=== PATIENT | male | born 1965 | race Caucasian/White ===

== ENCOUNTER 2022-01-20 00:13 | Day surgery (SDC) | payer OTHER, SELFPAY ==
[2021-12-23 13:19] VITALS: BMI 41.2
--- NOTE | 2022-01-11 13:42 | PC.NURSE ---
Completed patients pre-surgery phone call for rescheduled procedure. Patient states no changes in health history at this time.
[2022-01-20 10:35] VITALS: BP 147/98; PULSE 77; RESP 18; TEMP 36.3; O2SAT 94
[2022-01-20] MEDS: LACTATED RINGERS 1,000 ML 150 ML IV CONT (10:44)
--- NOTE | 2022-01-20 11:10 | WPDGICN ---
Assessment and Plan Assessment and plan (1) GERD (gastroesophageal reflux disease): Code(s): K21.9 - Gastro-esophageal reflux disease without esophagitis Status: Acute Assessment and Plan: Patient has chronic GE reflux. Appears controlled with omeprazole 40mg p.o. daily. Patient states if he stops this medicine symptoms promptly recur. Plan is for EGD because of the chronicity of symptoms to exclude underlying Barretts esophagus. Anti-reflux measures are discussed and encouraged. Continuing PPI therapy appears appropriate further recommendations may be given after EGD. (2) Encounter for screening colonoscopy: Code(s): Z12.11 - Encounter for screening for malignant neoplasm of colon Status: Acute Assessment and Plan: Colonoscopy recommended at this time he has never has screening exam. He appears to be at average risk for colon polyps. Further recommendations will be given after endoscopy. GI Consult Note Consult date/time: 01/20/22 11:10 HPI: Eligio Paige is a 56 year old male Presents for GI endoscopy. Patient reports that his current weight appetite bowel movements are normal. He denies any blood in his stools. He presents for screening colonoscopy. Family history noncontributory. He has never had prior colonoscopy in this is requested. Additionally patient has a lifelong history of acid reflux regurgitation heartburn. Patient has had no bleeding. He denies any dysphagia. Family history is noncontributory. He was placed on proton pump inhibitor therapy with omeprazole 40mg p.o. daily and this is help control symptoms. He has taken this medicine for perhaps 20 years. He has never had prior EGD. An EGD is requested because of chronic ge reflux. Review of Systems Review of Systems: All systems reviewed & are unremarkable except as noted in HPI and below PMFSH Social History Social History Smoking status: Never smoker Alcohol intake: current Alcohol use details: occasionally Substance use: never Substance use type: does not use Living arrangements: with family Spiritual care concerns: No Meds Home Medications and Allergies Home Medications Medication Instructions Recorded Confirmed Type escitalopram oxalate [Lexapro] 20 mg PO DAILY 12/23/21 12/23/21 History gabapentin 300 mg PO HS 12/23/21 12/23/21 History omeprazole 40 mg PO DAILY 12/23/21 12/23/21 History Allergies Allergy/AdvReac Type Severity Reaction Status Date / Time No Known Allergies Allergy Verified 01/11/22 13:35 Vital Signs Vital Signs - 24 hr 01/20/22 10:35 Temperature 97.4 F L Pulse Rate 77 Respiratory Rate 18 Blood Pressure 147/98 H Pulse Oximetry 94 Exam Narrative: Physical exam reveals patient to be alert. Vital signs stable. HEENT exam is unremarkable. Patient is anicteric. Lungs are clear to auscultation and percussion. Heart is without murmur or extra sounds. Abdominal exam bowel sounds are present soft nontender with no organomegaly. Digital external rectal exam is normal.
--- NOTE | 2022-01-20 11:15 | WPDANESEPPF ---
Anes - Initial Pre Proc Eval Procedure: Operation Date: 01/20/22 11:30 Proposed Procedures p Esophagogastroduodenoscopy & Screening Colonoscopy - Leonardo Guallpa MD Date/Time: 01/20/22 11:15 Surgeon: Leonardo Guallpa MD Pre Op Diagnosis: neoplasm screening, GERD Patient Data Age: 56 Gender: M Height: 1.8 m Weight: 146.4 kg Last Vital Signs Temp 36.3 C L 01/20/22 10:35 Pulse 77 01/20/22 10:35 Resp 18 01/20/22 10:35 BP 147/98 H 01/20/22 10:35 Pulse Ox 94 01/20/22 10:35 Allergies Allergy/AdvReac Type Severity Reaction Status Date / Time No Known Allergies Allergy Verified 01/11/22 13:35 Home Medications Medication Instructions Recorded Confirmed Type escitalopram oxalate [Lexapro] 20 mg PO DAILY 12/23/21 12/23/21 History gabapentin 300 mg PO HS 12/23/21 12/23/21 History omeprazole 40 mg PO DAILY 12/23/21 12/23/21 History Patient hx anesthesia problems: none Family hx anesthesia problems: none Results Review: All pre-operative results and documents have been reviewed as part of the pre-operative evaluation. [facility] Past Medical History Medical History (Updated 01/20/22 @ 11:15 by Poncho Bai MD) Anxiety GERD (gastroesophageal reflux disease) Morbid obesity Surgical History Surgical History (Updated 01/20/22 @ 11:17 by Poncho Bai MD) H/O arthroscopic knee surgery Social History Social History Smoking status: Never smoker Alcohol intake: current Alcohol use details: occasionally Substance use: never Substance use type: does not use Living arrangements: with family Spiritual care concerns: No Anes - Eval Final PreProcedure Day of Procedure 01/20/22 11:15 Patient weight: morbidly obese Heart: regular rate and rhythm Lungs: clear to auscultation Airway: Mallampati scale class III Neurological: alert and oriented Last oral intake: >/= 8 hours ASA classification: III Emergent: no Anesthetic plan: proceed Anesthesia type and monitoring: general GIVS and standard monitoring Results Review: All pre-operative results and documents have been reviewed as part of the pre-operative evaluation. Informed Consent: The patient's anesthetic plan and its attendant risks and benefits were discussed with the patient/family/POA. Questions were solicited and answers provided to the satisfaction of the patient/family/POA.
[2022-01-20] MEDS: BENZOCAINE (*SP) 60 ML SPRAY CAN (HURRICAINE) 1 SPRAY MUCOUS MEM (11:48)
--- NOTE | 2022-01-20 12:11 | SUR.OPER ---
EGD start 1151 end 1153, COLON start 1201 end 1210.
[2022-01-20 12:14] VITALS: BP 110/69; PULSE 76; RESP 20; O2SAT 96
[2022-01-20 12:24] VITALS: BP 106/74; PULSE 72; RESP 19; O2SAT 72
== END 2022-01-20 12:42 | disposition home or self-care (01) ==
PROVIDERS: PCP Family Medicine; Visit Provider Internal Medicine Gastroenterology
PROC: 0DJ08ZZ Inspection of Upper Intestinal Tract, Via Natural or Artificial Opening Endoscopic (ICD-10-PCS; CPT 43235; principal; 2022-01-20 11:30)
DX: Z12.11 Encounter for screening for malignant neoplasm of colon (principal); K64.8 Other hemorrhoids; K57.30 Diverticulosis of large intestine without perforation or abscess without bleeding; F41.9 Anxiety disorder, unspecified; R13.10 Dysphagia, unspecified; K21.9 Gastro-esophageal reflux disease without esophagitis; E66.01 Morbid (severe) obesity due to excess calories; Z68.42 Body mass index [BMI] 45.0-49.9, adult
CPT/HCPCS: 45378; 43235; J2704; J7120

== ENCOUNTER 2022-05-10 09:43 | Outpatient (CLI) | payer OTHER, SELFPAY ==
--- NOTE | 2022-05-10 11:00 | NEURO_ITS ---
Impression: # Complains of numbness of lower extremities. # Left peroneal neuropathy. # Normal needle/EMG exam. # Clinical correlation recommended. Nerve Conduction Studies Anti Sensory Summary Table Stim Site NR Peak (ms) P-T Amp (?V) Site1 Site2 Delta-P (ms) Dist (cm) Lawrence (m/s) Left Sup Fibular Anti Sensory (Ant Lat Mall) 14 cm 4.0 48.7 14 cm Ant Lat Mall 4.0 16.0 40 Right Sup Fibular Anti Sensory (Ant Lat Mall) 14 cm 3.8 19.0 14 cm Ant Lat Mall 3.8 16.0 42 Left Sural Anti Sensory (Lat Mall) Calf 4.0 3.6 Calf Lat Mall 4.0 16 40 Right Sural Anti Sensory (Lat Mall) Calf 4.0 10.2 Calf Lat Mall 4.0 16.0 40 Motor Summary Table Stim Site NR Onset (ms) O-P Amp (mV) Site1 Site2 Delta-0 (ms) Dist (cm) Lawrence (m/s) Left Peroneal Motor (Vastus Med) Ankle 4.7 1.1 Popit Ankle 10.0 41.0 41 Popit 14.7 0.9 Right Peroneal Motor (Vastus Med) Ankle 4.7 1.7 Popit Ankle 9.4 39.0 41 Popit 14.1 1.5 Left Tibial Motor (Abd Gu Brev) Ankle 4.9 1.2 Knee Ankle 11.3 42.0 37 Knee 16.2 2.0 Right Tibial Motor (Abd Gu Brev) Ankle 5.3 1.6 Knee Ankle 9.9 44.0 44 Knee 15.2 0.9 F Wave Studies NR F-Lat (ms) L-R F-Lat (ms) Left Peroneal (Mrkrs) (EDB) 60.90 1.52 Right Peroneal (Mrkrs) (EDB) 59.38 1.52 Left Tibial (Mrkrs) (Abd Hallucis) 60.29 2.11 Right Tibial (Mrkrs) (Abd Hallucis) 58.19 2.11 EMG Side Muscle Nerve Root Ins Act Fibs Amp Dur Recrt Comment Right AntTibialis Dp Br Fibular L4-5 Nml Nml Nml Nml Nml Right Gastroc Tibial S1-2 Nml Nml Nml Nml Nml Right Fibularis Long Sup Br Fibular L5-S1 Nml Nml Nml Nml Nml Right Flex Dig Long Tibial L5-S2 Nml Nml Nml Nml Nml Right Ext Dig Brev Dp Br Fibular L5, S1 Nml Nml Nml Nml Nml Left AntTibialis Dp Br Fibular L4-5 Nml Nml Nml Nml Nml Left Gastroc Tibial S1-2 Nml Nml Nml Nml Nml Left Fibularis Long Sup Br Fibular L5-S1 Nml Nml Nml Nml Nml Left Flex Dig Long Tibial L5-S2 Nml Nml Nml Nml Nml Left Ext Dig Brev Dp Br Fibular L5, S1 Nml Nml Nml Nml Nml MTDD
== END 2022-05-10 09:44 | disposition home or self-care (01) ==
PROVIDERS: PCP Family Medicine; Visit Provider Psychiatry & Neurology Neurology
DX: G62.9 Polyneuropathy, unspecified (principal)
CPT/HCPCS: 95886; 95910

== ENCOUNTER 2022-07-21 14:11 | Emergency (ER) | payer OTHER, SELFPAY ==
[2022-07-21 14:23] VITALS: BP 148/95; PULSE 80; RESP 18; TEMP 36.7; O2SAT 100
--- NOTE | 2022-07-21 14:26 | ED.GENADULT ---
HPI - General Adult General Stated complaint: left side elbow pain/sob Time Seen by Provider: 07/21/22 14:45 Source: patient Mode of arrival: ambulatory Limitations: no limitations History of Present Illness HPI narrative: 57-year-old male presents concern for left arm pain. He reports he has been having left arm pain for 6 months without injury. He reports he saw orthopedics yesterday who told him he likely has osteoarthritis and recommended physical therapy. He reports today he was speaking to a friend who told him that left arm pain could be a sign of a heart attack. He told his friend he would be evaluated. He denies shortness of breath, chest pain, nausea, diaphoresis. He denies history of cardiac problems. Patient had a normal stress test in March of this year MD complaint: Arm pain Related Data Home Medications Medication Instructions Recorded Confirmed escitalopram oxalate 20 mg tablet 20 mg PO DAILY 12/23/21 07/21/22 (Lexapro) omeprazole 40 mg capsule,delayed 40 mg PO DAILY 12/23/21 07/21/22 release Allergies Allergy/AdvReac Type Severity Reaction Status Date / Time No Known Allergies Allergy Verified 07/20/22 10:12 Review of Systems Review of Systems: CONSTITUTIONAL: Denies malaise, chills, sweats, or fever. CARDIOVASCULAR: Denies chest pain, palpitations, or edema. RESPIRATORY: Denies cough or dyspnea. GASTROINTESTINAL: Denies abdominal pain, nausea, vomitin SKIN: Denies diaphoresis MUSCULOSKELETAL: Reports left shoulder and elbow pain NEUROLOGIC: Denies numbness, weakness, or headache. All systems reviewed & are unremarkable except as noted in HPI and below PMFSH Past Medical History Medical History (Updated 07/21/22 @ 15:06 by Alicia Sykes NP) Anxiety Arthritis Arthritis of left shoulder region Coughing DJD (degenerative joint disease) of knee Encounter for screening colonoscopy GERD (gastroesophageal reflux disease) GERD (gastroesophageal reflux disease) Left shoulder pain Morbid obesity Neuropathy SLAP tear of shoulder Tendinitis of left elbow Distal biceps Urinary frequency Wears glasses Weight gain Wheezing Surgical History Surgical History H/O arthroscopic knee surgery Family History Family History Father Alcoholism Social History Social History (Reviewed 07/20/22 @ 10:13 by Andria Lee Smoking status: Never smoker Alcohol intake: current Alcohol use details: occasionally Substance use: never Substance use type: does not use Spiritual care concerns: No Comments At time of signature, agree with nursing past medical, surgical, social and family history. There is no relevant family history pertinent to the presenting complaint Exam Narrative: GENERAL: Well-appearing, well-nourished, and in no acute distress. HEAD: Normocephalic, atraumatic. EYES: PERRLA, sclera clear, and EOMI. ENT: Nares clear. Mucous membranes moist NECK: Supple. CHEST: No respiratory distress. Clear to auscultation. No bony deformities, no asymmetry. Speaks in full sentences. HEART: Regular rate and rhythm. No murmur heard. Normal peripheral pulses. EXTREMITIES: Grossly normal range of motion. No edema SKIN: Warm, dry, no visible rash. NEURO: Alert and oriented x3. PSYCH: Normal mood and affect Course Course Emergency Course: Patient is aware of diagnosis, understands and agrees to treatment plan. Anticipatory guidance given. Patient agrees to follow-up as directed and is aware of reasons to seek care at the emergency department. Portions of this record may have been created with voice recognition software Level of Care: Express Care Visit Vital Signs Vital signs: Vital Signs Temperature 98.1 F 07/21/22 14:23 Pulse Rate 80 07/21/22 14:23 Respiratory Rate 18 07/21/22 14:23 Blood Pressure 148/95 H 07/21/22 14:23 Pulse Oximetry 100
--- NOTE | 2022-07-21 14:48 | ECG_ITS ---
Measurements Intervals [place] Rate: 70 P: -21 NM: 170 QRS: 11 QRSD: 78 T: 29 QT: 374 QTc: 405 Interpretive Statements SINUS RHYTHM BASELINE ARTIFACT- I, II, III, AVR, AVL, AVF, V1-V6 NORMAL ECG NO PREVIOUS ECG AVAILABLE FOR COMPARISON Electronically Signed On 07-21-2022 21:25:38 CDT by Mohsen Michel D.O.
== END 2022-07-21 15:13 | disposition home or self-care (01) ==
PROVIDERS: Emergency Provider Nurse Practitioner
DX: M79.602 Pain in left arm (principal); M19.012 Primary osteoarthritis, left shoulder; F41.9 Anxiety disorder, unspecified; K21.9 Gastro-esophageal reflux disease without esophagitis; E66.01 Morbid (severe) obesity due to excess calories; Z68.42 Body mass index [BMI] 45.0-49.9, adult
CPT/HCPCS: 93005; 99213; G0463